=== PATIENT | female | born 1975 | race Caucasian/White ===

== ENCOUNTER 2017-01-23 06:26 | Day surgery (SDC) | payer OTHER ==
[2017-01-23] VITALS (8 sets, daily range): BP systolic 97–141; BP diastolic 56–68; PULSE 54–67; RESP 14–22; Ht 167.6 cm; Wt 88.0 kg
[~2017-01-23] VITALS: Ht 167.6 cm; Wt 88.0 kg
--- NOTE | 2017-01-23 06:23 | PREOPHP ---
DATE OF ADMISSION: 01/23/2017 HISTORY OF PRESENT ILLNESS: This is a 41-year-old lady 1. Her last normal menstrual period was 1 day prior to admission. She was admitted as an outpatient for a laparoscopic bilateral tubal cauterization. The procedures were explained to the patient and she understood everything totally. The risks, benefits and alternatives were discussed with her as well. The patient complains of pelvic pain for the last 1 year. PAST MEDICAL HISTORY: No history of diabetes, TB or asthma. ALLERGIES: NO ALLERGIES. SOCIAL HISTORY: The patient does not smoke. She does not drink. She does not take any drugs. 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 She is 1, para 1, her first delivery was in 2015, normal delivery. FAMILY HISTORY: Noncontributory. REVIEW OF SYSTEMS: CARDIOVASCULAR: No chest pain. RESPIRATORY: No cough. GASTROINTESTINAL: No diarrhea, no vomiting. GENITOURINARY: No dysuria. PHYSICAL EXAMINATION: GENERAL: Reveals a conscious coherent lady in no acute distress. VITAL SIGNS: Her blood pressure is 120/80, pulse rate of 80 per minute, respirations are 16 per minute. VITAL SIGNS: Within normal limits. HEENT: Within normal limits. LUNGS: Within normal limits. ABDOMEN: Soft. No organomegaly. Obese. PELVIC: Pelvic exam revealed the cervix to be firm, uterus of normal size, and adnexa was negative for masses. RECTAL: Rectal exam confirmed the pelvic findings. EXTREMITIES: No pedal edema. ADMITTING DIAGNOSIS: Multiparity. The patient was planned to have the above procedure. The risks, benefits and alternatives were discussed with her as well. Dictated By: Lorna Gonzalez MD /negrito/augustine /Document#: [id number] CC: Lorna Gonzalez MD;*EndCC* MTDD
[2017-01-23] MEDS ORDERED: CEFAZOLIN 1 GM INJ ONE (10:17)
[2017-01-23] MEDS ORDERED: FAMOTIDINE 20 MG INJ ONE (10:18)
[2017-01-23] MEDS ORDERED: DEXAMETHASONE 4 MG/ML 1 ML INJ ONE (10:18)
[2017-01-23] MEDS ORDERED: ROCURONIUM 50 MG INJ ONE (10:18)
[2017-01-23] MEDS ORDERED: ONDANSETRON 4 MG INJ ONE (10:18)
[2017-01-23] MEDS ORDERED: KETOROLAC 30 MG INJ ONE (10:18)
[2017-01-23] MEDS ORDERED: LIDOCAINE 2% (SDV) 5 ML INJ ONE (10:18)
[2017-01-23] MEDS ORDERED: PROPOFOL 20 ML ONE (10:18)
[2017-01-23] MEDS ORDERED: BUPIVACAINE 0.25% (MPF) 30 ML INJ ONE (10:29)
[2017-01-23] MEDS ORDERED: SUGAMMADEX SODIUM 200 MG/2 ML VIAL IV ONE (10:43)
[2017-01-23] MEDS ORDERED: PHENYLephrine (100 MCG/ML) 5ML SYG ONE (10:48)
[2017-01-23] MEDS: HYDROmorphONE (0.2 MG/ML) 10ML SYG IV PRN ×2 (11:12→11:23)
--- NOTE | 2017-01-23 11:25 | SIPON ---
Date/Time of Note Date/Time of Note DATE: 01/23/17 TIME: 11:23 Operative Report Preoperative Diagnosis MULTIPARITY OBESITY Postoperative Diagnosis MULTIPARITY OBESITY Operation/Procedure Performed BILATERAL LAPAROSCOPIC TUBAL CUATERIZATIOM Surgeon see signature line senior agricultural assistant HOOKER OFF Anesthesia: general Estimated blood loss: minimal Transfusion Required none Specimen NONE Grafts/Implants none Complications none AUNG HERRERA MD Jan 23, 2017 11:25
[2017-01-23] MEDS ORDERED: HYDROmorphONE (0.2 MG/ML) 10ML SYG IV PRN (11:30)
[2017-01-23] MEDS ORDERED: ONDANSETRON 4 MG INJ IV PRN (11:30)
--- NOTE | 2017-01-24 13:39 | OPR ---
DATE OF OPERATION: 01/23/2017 PREOPERATIVE DIAGNOSIS: Multiparity. Patient desires sterilization. Obesity. POSTOPERATIVE DIAGNOSIS: Multiparity. Patient desires sterilization. Obesity. OPERATION PERFORMED: Bilateral tubal cauterization by laparoscopy. SURGEON: Dr. Gonzalez. ASSOCIATE PROFESSOR OF ENGLISH: Mindy blanco. ANESTHESIA: General. ANESTHESIOLOGIST: . OPERATIVE TECHNIQUE: Under general anesthesia, the patient was prepped and draped in the usual fashion for vaginal and abdominal surgery. Pelvic exam under anesthesia revealed the cervix to be firm, the uterus of normal size and adnexa were negative for masses. Then the heavy-weight vaginal retractor was put in place and the anterior lip of the cervix was grasped with an Allis clamp. The endocervical dilatation of the Hegar 6 was proceeded. The uterus was sounded to about 3 inches. Then the HUMI catheter was inserted inside the uterine cavity and put in place with the aid of 6 cc air. Then the patient's legs were put in semi- lithotomy position. The Velasco catheter was put in place. Then laparoscopy was proceeded. Two towel clips were placed just above the umbilicus and a Veress needle was inserted through the umbilicus. About 3 L of carbon dioxide was insufflated. The Veress needle was removed and a small incision above the umbilicus was performed. A 5 mm trocar was inserted and then the laparoscope was inserted under direct vision. Another 5 mm trocar was inserted above the symphysis pubis. Then the probe was inserted and then both tubes and ovaries were identified. They were healthy looking. The uterus was noted to be of normal size. Then the probe was removed and the grasping forceps was inserted. The right tube was grasped in the center over the avascular area while 1 cm tube was cauterized after the mesosalpinx. Another 1 cm tube was cauterized proximal to the first cauterized tube. Good cauterization was noted. The right fimbria was identified. The same thing was done on the left side. The midportion of the tube was cauterized after the mesosalpinx as well as 1 cm proximal to the first cauterized tube. Good cauterization was noted. The left fimbria was identified. Bleeders were checked and there were no bleeding noted. After checking for any bleeders, in which there were none, then the trocar above the symphysis pubis was removed under direct vision. No bleeding was noted. Then the laparoscope was removed under direct vision. Then the air was allowed to escape from the pelvic cavity with the trocar above the umbilicus. Then after allowing all the air to escape from the pelvic cavity, the incisions were closed with 3-0 Vicryl subcuticular sutures. The patient tolerated the procedure well. ESTIMATED BLOOD LOSS: Minimal. CONDITION: Vital signs were stable during and after the procedure. Dictated By: Lorna Gonzalez MD /negrito/raoul /Document#: [id number] ; [place] office
== END 2017-01-23 12:45 | disposition home or self-care (01) ==
LOC: SDS 06:26
PROVIDERS: ATTEND Obstetrics & Gynecology
DX: Z30.2 Encounter for sterilization (principal)
CPT/HCPCS: 58670; 86850; 86900; 86901; J0690; J1100; J1170; J1885; J2405; Z7512; Z7610; J2370